=== PATIENT | male | born 1935 | race Caucasian/White ===

== ENCOUNTER 2016-10-12 08:46 | Emergency (ER) | payer OTHER, MEDICARE ==
[~2016-10-12] VITALS: Ht 180.3 cm; Wt 79.4 kg
[2016-10-12 08:51] VITALS: BP 151/61
--- NOTE | 2016-10-12 09:08 | ED ANKLE/FOOT INJURY COMPLAINT ---
History of Present Illness General Chief Complaint: Foot or Ankle Injury Stated Complaint: LFT BIG TOE PAIN AND SWELLING Source: patient, old records Exam Limitations: no limitations Vital Signs & Intake/Output Vital Signs & Intake/Output Vital Signs Date Time Temp Pulse Resp B/P B/P Pulse O2 O2 Flow FiO2 Mean Ox Delivery Rate 10/12 0851 97.5 87 18 151/61 98 Room Air Allergies Coded Allergies: No Known Allergies (10/12/16) Reconcile Medications Colchicine (Colcrys) 0.6 MG TABLET 1 TAB PO AD PRN gout 1 tab every hour for 7 hours until pain better or n/v/d, abdominal pain Indomethacin 25 MG CAPSULE 1-2 CAP PO TID PRN pain with food Prednisone 20 MG TABLET 1 TAB PO BID gout Tramadol HCl (Ultram) 50 MG TABLET 1-2 TAB PO Q6PRN PRN severe pain Triage Note: PT TO ED FOR L BIG TOE PAIN, NO KNOWN INJURY. Triage Nurses Notes Reviewed? yes Occurred: this evening Duration: hour(s):, constant, continues in ED Timing: recent history Severity: moderate Pain/Injury Location: Left: Foot, 1st toe. Method of Injury: unknown Modifying Factors: Improves With: immobilization. Worsens With: movement. Associated Symptoms: swelling, redness, GCS 15 since, stiffness HPI: Evening prior to admission patient developed left first metatarsal redness swelling pain sharp moderate in quality constant nonradiating worse with weightbearing and movement. He denies injury fever chills nausea vomiting diarrhea abdominal pain chest pain shortness breath headache dysuria bleeding previous episodes family history. Past History Travel History Traveled to [place] past 21 day No Medical History Any Pertinent Medical History? none Neurological: NONE EENT: NONE Cardiovascular: NONE Respiratory: NONE Gastrointestinal: NONE Hepatic: NONE Renal: NONE Musculoskeletal: NONE Psychiatric: NONE Endocrine: NONE Blood Disorders: NONE Cancer(s): NONE Surgical History Surgical History: non-contributory Psychosocial History Tobacco Use: Current Daily Use Daily Tobacco Use Amount/Type: => 5 Cigarettes daily ETOH Use: denies use Illicit Drug Use: denies illicit drug use Family History Hx Contributory? No Review of Systems Review of Systems Constitutional: Reports: no symptoms. EENTM: Reports: no symptoms. Respiratory: Reports: no symptoms. Cardiovascular: Reports: no symptoms. GI: Reports: no symptoms. Genitourinary: Reports: no symptoms. Musculoskeletal: Reports: see HPI, joint pain, joint swelling. Skin: Reports: see HPI, rash. Neurological/Psychological: Reports: no symptoms. Hematologic/Endocrine: Reports: no symptoms. Immunologic/Allergic: Reports: no symptoms. All Other Systems: Reviewed and Negative Physical Exam Physical Exam General Appearance: well developed/nourished, alert, awake, anxious, moderate distress, thin Head: atraumatic, normal appearance Eyes: Bilateral: normal appearance, PERRL, EOMI. Ears, Nose, Throat: normal pharynx, normal ENT inspection, hearing grossly normal Neck: normal inspection, supple Cardiovascular/Respiratory: regular rate/rhythm Back: normal inspection, normal range of motion, no vertebral tenderness Leg/Knee/Thigh Left: normal range of motion, normal inspection Leg/Knee/Thigh Right: normal range of motion, normal inspection Ankle Left: normal inspection, normal range of motion Ankle Right: normal inspection, normal range of motion Foot Left: tenderness, bone tenderness, erythema, limited range of motion, soft tissue tenderness, swelling Foot Right: normal inspection, normal range of motion Reflexes: 2+: knee (R), knee (L). Neuro/Vascular: normal motor function, normal sensation Tendon: normal tendon function Psychiatric: awake, alert, oriented x 3 Skin: intact, warm/dry, rash Progress Differential Diagnosis: cellulitis, gout, sprain, contusion Plan of Care: Current Medications Sig/Hayley Start time Last Medication Dose Stop Time Status Admin Colchicine 600 MCG ONCE ONE 10/12 914 UNVr (Colchicine 600MCG 10/13 915 Tab) Indomethacin Sodium 50 MG ONCE ONE 10/12 914 UNVr (Indocin 25 MG Cap) 10/13 915 Prednisone 60 MG ONCE ONE 10/12 914 UNVr 10/13 915 Departure Departure Time of Disposition: 905 Disposition: HOME OR SELF CARE Condition: Stable Clinical Impression Primary Impression: Acute gouty arthritis Referrals: MEERA MARC,Mary GRIFFITHS (PCP/Family) Departure Forms: Customer Survey General Discharge Information Prescriptions: Current Visit Scripts Prednisone 1 TAB PO BID #10 TAB Indomethacin 1-2 CAP PO TID PRN pain #30 CAP with food Colchicine (Colcrys) 1 TAB PO AD PRN gout #30 TAB 1 tab every hour for 7 hours until pain better or n/v/d, abdominal pain Tramadol HCl (Ultram) 1-2 TAB PO Q6PRN PRN severe pain #30 TAB
[2016-10-12] MEDS ORDERED: INDOMETHACIN25 M1 PO (09:10)
[2016-10-12] MEDS ORDERED: COLCRYS0.6 M1 PO (09:10)
[2016-10-12] MEDS ORDERED: PREDNISONE20 M1 PO (09:10)
[2016-10-12] MEDS ORDERED: ULTRAM50 M1 PO (09:10)
== END 2016-10-12 09:18 ==
LOC: ERH 08:46
DX: M10.9 Gout, unspecified (principal)